=== PATIENT | male | born 1940 | race American Indian/Alaskan Native ===

== ENCOUNTER 2018-01-15 04:26 | Emergency (ER) | payer MEDICARE ==
[2018-01-15 05:50] LABS: Basophils % (Auto) 0.3 % (0.0-1.8); Eosinophils # (Auto) 0.1 K/mm3 (0.0-0.4); Eosinophils % (Auto) 2.1 % (0.0-4.3); Hematocrit 30.4 % (35.5-45.6); Hemoglobin 10.4 gm/dl (11.8-15.2); Lymphocytes # (Auto) 0.5 K/mm3 (1.2-5.4); Lymphocytes % (Auto) 8.9 % (13.4-35.0); Mean Corpuscular HGB Conc 34 % (32-34); Mean Corpuscular Hemoglobin 32 pg (28-32); Mean Corpuscular Volume 93 fl (84-94); Monocytes # (Auto) 0.5 K/mm3 (0.0-0.8); Monocytes % (Auto) 8.8 % (0.0-7.3); Red Blood Count 3.26 M/mm3 (3.65-5.03); Red Cell Distribution Width 14.9 % (13.2-15.2)
[2018-01-15 06:00] LABS: INR 0.99 (0.87-1.13)
[2018-01-15 06:01] LABS: Partial Thromboplastin Time 36.3 Sec. (24.2-36.6)
[2018-01-15 06:05] LABS: Bilirubin,Urine NEG (Negative); Blood,Urine LG (Negative); Color,Urine Red (Yellow); Urobilinogen,Urine < 2.0 mg/dL (<2.0)
[2018-01-15 06:08] LABS: Calcium 8.2 mg/dL (8.4-10.2)
[2018-01-15 06:15] LABS: Protein,Urine >500 mg/dL (Negative); RBC,Urine > 182.0 /HPF (0.0-6.0); WBC,Urine > 182.0 /HPF (0.0-6.0)
--- NOTE | 2018-01-15 06:34 | Emergency Department Report ---
HPI - General Chief Complaint: Tube Replacement Time Seen by Provider: 01/15/18 06:21 - [facility] HPI: Room 24 The patient is 77-year-old male presenting with a chief complaint of urinary retention. The patient has a history of an enlarged prostate and underwent a cystoscopy 3 days ago by . The patient had a Menjivar catheter placed at that time and he states it drained bloody urine. Last night the patient states his Menjivar catheter stopped draining and he began to develop severe lower abdominal pain. The patient had a Menjivar catheter placed in the ED prior to my evaluation and he states he feels much improved. Patient and patient's spouse states that he has a history of renal insufficiency and is scheduled to see a manager test 01/26/2018. The patient is still taking antibiotics from his cystoscopy Location: Genitourinary system Duration: [See above] Quality: Pain Severity: Currently 0/10 but severe on arrival Modifying factors: [see above] Context: [see above] Mode of transportation: Unknown ED Past Medical Hx - Past Medical History Additional medical history: BPH, coronary artery disease - Surgical History Additional Surgical History: Right groin aneurysm repair - Family History Family history: no significant - Social History Smoking Status: Current Every Day Smoker (1/2 pack per day) Substance Use Type: None ED Review of Systems ROS: Stated complaint: CATHETER COMPLICATIONS Other details as noted in HPI Constitutional: no symptoms reported Eyes: denies: eye pain ENT: denies: throat pain Respiratory: no symptoms reported Cardiovascular: denies: chest pain Endocrine: no symptoms reported Gastrointestinal: abdominal pain Genitourinary: hematuria Musculoskeletal: denies: back pain Neurological: denies: headache Physical Exam - Physical Exam Vital Signs: Vital Signs 01/15/18 01/15/18 05:00 05:06 Temperature 98.3 F Pulse Rate 92 H Respiratory 18 18 Rate Blood Pressure 163/86 O2 Sat by Pulse 98 98 Oximetry Physical Exam: GENERAL: The patient is well-developed well-nourished male lying on stretcher not appearing to be in acute distress. [] HEENT: Normocephalic. Atraumatic. Extraocular motions are intact. Patient has moist mucous membranes. NECK: Supple. Trachea midline CHEST/LUNGS: Clear to auscultation. There is no respiratory distress noted. HEART/CARDIOVASCULAR: Regular. There is no tachycardia. There is no gallop rub or murmur. ABDOMEN: Abdomen is soft, nontender. Patient has normal bowel sounds. There is no abdominal distention. SKIN: There is no rash. There is no edema. There is no diaphoresis. NEURO: The patient is awake, alert, and oriented. The patient is cooperative. The patient has normal speech MUSCULOSKELETAL: There is no evidence of acute injury. ED Course Vital Signs 01/15/18 01/15/18 05:00 05:06 Temperature 98.3 F Pulse Rate 92 H Respiratory 18 18 Rate Blood Pressure 163/86 O2 Sat by Pulse 98 98 Oximetry ED Medical Decision Making - Lab Data Result diagrams: 01/15/18 05:31 01/15/18 05:31 Laboratory Tests 01/15/18 01/15/18 01/15/18 05:31 05:31 05:31 WBC 5.2 RBC 3.26 L Hgb 10.4 L Hct 30.4 L MCV 93 MCH 32 MCHC 34 RDW 14.9 Lymph % (Auto) 8.9 L [place] % (Auto) 8.8 H Eos % (Auto) 2.1 Baso % (Auto) 0.3 Lymph # 0.5 L [place] # 0.5 Eos # 0.1 Baso # 0.0 Seg Neutrophils % 79.9 H Seg Neutrophils # 4.2 PT 13.6 INR 0.99 APTT 36.3 Sodium 140 Potassium 4.3 Chloride 104.7 Carbon Dioxide 25 Anion Gap 15 BUN 30 H Creatinine 2.5 H Estimated GFR 30 BUN/Creatinine Ratio 12 Glucose 104 H Calcium 8.2 L Urine Color Urine Turbidity Urine pH Ur Specific [place] Urine Protein Urine Glucose (UA) Urine Ketones Urine Blood Urine Nitrite Urine Bilirubin Urine Urobilinogen Ur Leukocyte Esterase Urine WBC (Auto) Urine RBC (Auto) U Epithel Cells (Auto) 01/15/18 Unknown WBC RBC Hgb Hct MCV MCH MCHC RDW Lymph % (Auto) [place] % (Auto) Eos % (Auto) Baso % (Auto) Lymph # [place] # Eos # Baso # Seg Neutrophils % Seg Neutrophils # PT INR APTT Sodium Potassium Chloride Carbon Dioxide Anion Gap BUN Creatinine Estimated GFR BUN/Creatinine Ratio Glucose Calcium Urine Color Red Urine Turbidity Turbid Urine pH 7.0 Ur Specific [place] 1.018 Urine Protein >500 Urine Glucose (UA) 50 Urine Ketones Neg Urine Blood Lg Urine Nitrite Neg Urine Bilirubin Neg Urine Urobilinogen < 2.0 Ur Leukocyte Esterase Neg Urine WBC (Auto) > 182.0 H Urine RBC (Auto) > 182.0 U Epithel Cells (Auto) 10.0 - Differential Diagnosis urinary retention, UTI Critical care attestation.: If time is entered above; I have spent that time in minutes in the direct care of this critically ill patient, excluding procedure time. ED Disposition Clinical Impression: Urinary retention, Acute abdominal pain, Renal insufficiency Disposition: TO HOME OR SELFCARE Is pt being admited?: No Does the pt Need Aspirin: No Condition: Stable Instructions: Urinary Retention in Men (ED), Urinary Leg Bag (GEN), Menjivar Catheter Placement and Care (ED) Additional Instructions: Return to the emergency department immediately should you develop worsening symptoms, fever, inability to tolerate food or liquid or any other concerns. Referrals: PRIMARY CARE, [Primary Care Provider] - 3-[address] Rousseau, urology [Other] - [facility] Time of Disposition: 06:34
[2018-01-15 06:58] VITALS: BP 164/82
[2018-01-15 07:56] LABS: Platelet Count 94 K/mm3 (140-440)
[2018-01-15 07:57] LABS: Mean Platelet Volume 7.9 fl (6-12)
== END 2018-01-15 06:57 | disposition home or self-care (01) ==
LOC: ED 04:26
DX: R33.9 Retention of urine, unspecified (principal); N28.9 Disorder of kidney and ureter, unspecified; I25.10 Atherosclerotic heart disease of native coronary artery without angina pectoris; F17.200 Nicotine dependence, unspecified, uncomplicated
CPT/HCPCS: 36415; 51702; 80048; 81001; 85025; 85610; 85730; 99284